=== PATIENT | male | born 2000 | race Hispanic/Latino ===

== ENCOUNTER 2023-02-18 12:13 | Observation (INO) | payer OTHER ==
[2023-02-18] MEDS ORDERED: Sodium Chloride 0.9% 100 ML ONE (12:29)
[2023-02-18] MEDS ORDERED: Morphine 4 MG/ML VIAL ONE (12:29)
[2023-02-18] MEDS ORDERED: CEFAZOLIN 2 GM VIAL ONE (12:29)
[2023-02-18] MEDS ORDERED: Boostrix 0.5 ML (Tdap) VIAL (>/=7 yrs of age) ONE (12:37)
[2023-02-18 12:45] LABS: #Eosinphils 0.1 thou/uL (0.0-0.7); #Monocytes 0.6 thou/uL (0.11-0.59); #Neutrophils 3.9 thou/uL (1.40-6.50); %Basophils 0.3 % (0.0-1.0); %Eosinophils 0.8 % (0.0-10.0); %Lymphocytes 29.1 % (28.0-48.0); %Monocytes 9.4 % (0.0-4.0); %Neutrophils 59.9 % (31.0-61.0); Hematocrit 45.5 % (42.0-52.0); Mean Corpuscular Hemoglobin 30.2 pg (25.0-35.0); Mean Corpuscular Volume 91.7 fl (78.0-98.0); Mean Platelet Volume 10.4 fL (7.4-10.4); Platelet Count 265 10x3/uL (130-400); RBC Distribution Width 12.8 % (11.5-14.5); Red Blood Cell (RBC) Count 4.96 mill/uL (4.00-5.20); White Blood Cell (WBC) Count 6.5 10x3/uL (4.8-10.8)
[2023-02-18 12:59] LABS: ALT (SGPT) 13 U/L (8-55); AST (SGOT) 13 U/L (5-34); Albumin 4.6 g/dL (3.5-5.0); Alkaline Phosphatase 75 U/L (50-130); Anion Gap 13 mmol/L (10-20); BUN (Urea Nitrogen) 8 mg/dL (8.9-20.6); Bilirubin, Total 0.8 mg/dL (0.2-1.2); Calc. Creatinine Clearance 0 mL/min (70-130); Calcium 9.2 mg/dL (7.8-10.44); Carbon Dioxide 25 mmol/L (22-29); Chloride 104 mmol/L (98-107); Estimated GFR 126; Globulin 2.5 g/dL (2.4-3.5); Glucose 103 mg/dL (70-105); Potassium 3.9 mmol/L (3.5-5.1); Protein, Total 7.1 g/dL (6.0-8.3); Sodium 138 mmol/L (136-145)
[2023-02-18] MEDS ORDERED: traMADol HCl 50 MG TAB PO PRN ×3 (13:31→16:57)
[2023-02-18] MEDS ORDERED: Morphine 2 MG/ML VIAL SLOW IVP PRN ×2 (13:31→16:58)
[2023-02-18] MEDS ORDERED: Ipratropium/Albuterol 3 ML NEB NEB PRN (13:31)
[2023-02-18] MEDS ORDERED: Ondansetron PF 4 MG/2 ML Vial IVP PRN (13:31)
[2023-02-18] MEDS ORDERED: CEFAZOLIN 2 GM in Sodium Chloride 0.9% 100 ML IVPB SCH (13:45)
[2023-02-18] MEDS ORDERED: Sodium Chloride 0.9% 1,000 ML IV SCH (13:45)
[2023-02-18] MEDS ORDERED: fentaNYL PF 100 MCG/2 ML SYRINGE ONE (14:14)
[2023-02-18] MEDS ORDERED: SUGAMMADEX SODIUM 200 MG/2 ML VIAL ONE (14:14)
[2023-02-18] MEDS ORDERED: EPINEPHrine 1 MG/ML AMP ONE (14:46)
[2023-02-18] MEDS ORDERED: Bupivacaine 0.25% HCL 30 ML VIAL ONE (14:46)
[2023-02-18] MEDS ORDERED: Ketorolac Tromethamine 30 MG/ML VIAL ONE (15:10)
[2023-02-18] MEDS ORDERED: PROPOFOL 200 MG/20 ML VIAL ONE (15:10)
[2023-02-18] MEDS ORDERED: Lidocaine 1% PF 5 ML VIAL ONE (15:10)
[2023-02-18] MEDS ORDERED: Succinylcholine 200 MG/10 ml SYRINGE FS ONE (15:10)
[2023-02-18] MEDS ORDERED: Rocuronium Bromide 10 MG/ML (10ML VIAL) ONE (15:10)
[2023-02-18] MEDS ORDERED: TETANUS, DIPHTHERIA TOX,ADULT (TDVAX) 0.5 ML VIAL IM ONE (16:55)
[2023-02-18] MEDS ORDERED: Ibuprofen 600 MG TAB PO PRN (16:58)
[2023-02-18] MEDS: Acetaminophen 325 MG TAB PO SCH ×2 (18:20→22:12)
[2023-02-18] MEDS: Acetaminophen 500 MG TAB PO SCH ×2 (18:22→22:48)
[2023-02-18] MEDS: traMADol HCl 50 MG TAB PO SCH ×2 (18:23→22:47)
[2023-02-18 20:52] VITALS: BMI 33.9
[2023-02-18] MEDS: Famotidine/PF 20 mg/2ml Vial SLOW IVP SCH (21:18)
[2023-02-18] MEDS: Senokot S 8.6-50 MG TAB PO SCH (21:20)
[2023-02-18] MEDS: CEFAZOLIN 2 GM in Sodium Chloride 0.9% 100 ML IVPB SCH (22:45)
[2023-02-19] MEDS: Acetaminophen 325 MG TAB PO SCH ×2 (05:26→10:56)
[2023-02-19] MEDS: Acetaminophen 500 MG TAB PO SCH (05:54)
[2023-02-19] MEDS: traMADol HCl 50 MG TAB PO SCH (05:54)
[2023-02-19] MEDS: CEFAZOLIN 2 GM in Sodium Chloride 0.9% 100 ML IVPB SCH (05:55)
[2023-02-19 08:00] VITALS: BP 117/69; TEMP 98.2
[2023-02-19] MEDS: Famotidine/PF 20 mg/2ml Vial SLOW IVP SCH (08:53)
[2023-02-19] MEDS: Senokot S 8.6-50 MG TAB PO SCH (08:53)
[2023-02-19] MEDS ORDERED: Polyethylene Glycol 3350 17 GM Packet PO SCH (09:00)
[2023-02-21] MEDS ORDERED: FLU VACC QS2023-24(6MOS UP)/PF 60 MCG/0.5 ML SYRINGE IM ONE (09:00)
== END 2023-02-19 11:13 | disposition home or self-care (01) ==
LOC: ERS 12:13 → INTOOBSV 17:10 → SURG A 17:10
PROVIDERS: ADMIT Student in an Organized Health Care Education/Training Program; ATTEND Student in an Organized Health Care Education/Training Program
PROC: 0HQNXZZ Repair Left Foot Skin, External Approach (ICD-10-PCS; principal; 2023-02-18)
DX: S92.002A Unspecified fracture of left calcaneus, initial encounter for closed fracture (principal); S91.312A Laceration without foreign body, left foot, initial encounter; F17.200 Nicotine dependence, unspecified, uncomplicated; V23.49XA Other motorcycle driver injured in collision with car, pick-up truck or van in traffic accident, initial encounter
CPT/HCPCS: 80053; 85025; 90471; 90715; 96365; 96375; G0390; J0171; J1885; J2270; J2704; J3490; S0020; S0028